=== PATIENT | male | born 1960 | race Caucasian/White ===

== ENCOUNTER 2023-12-19 16:53 | Emergency (ER) | payer OTHER, SELFPAY ==
[2023-12-19 17:34] VITALS: BP 127/73; PULSE 66; RESP 18; TEMP 36.6; O2SAT 99
[2023-12-19 19:05] VITALS: BP 122/75; PULSE 63; RESP 19; O2SAT 96
[2023-12-19 20:56] VITALS: BP 147/76; PULSE 65; RESP 16; O2SAT 100
--- NOTE | 2023-12-19 21:01 | USR_ITS ---
PROCEDURE INFORMATION: Exam: US Duplex Right Lower Extremity Veins, Limited Exam date and time: 12/19/2023 9:55 PM Age: 63 years old Clinical indication: Pain; Leg, lower; Right; Prior surgery; Surgery date: 6+ months; Surgery type: Knee replacement x1 year ago; Additional info: Rle pain and swelling TECHNIQUE: Imaging protocol: Real-time duplex ultrasound of the right extremity with 2-D marina scale, color Doppler flow and spectral waveform analysis including responses to compression and other maneuvers (when performed) with image documentation. Limited exam was focused on the right lower extremity veins. COMPARISON: No relevant prior studies available. FINDINGS: Right deep veins: Unremarkable. The common femoral, femoral, proximal profunda femoral and popliteal veins are patent without thrombus. Normal Doppler waveforms. Normal compressibility and/or augmentation response. Superficial veins: Greater saphenous vein at the saphenofemoral junction is patent without thrombus. Soft tissues: Mercedes's cyst in the right popliteal fossa measuring 1.2 x 2.8 x 4.8 cm. US/[place] [id number] IMPRESSION: No evidence of deep vein thrombosis. Right Mercedes cyst
--- NOTE | 2023-12-19 21:06 | W.ED.EXTPRO ---
HPI - Extremity Problem General: Chief complaint: Extremity Injury, Lower Stated complaint: rt leg swollen Time Seen by Provider: 12/19/23 20:42 History of Present Illness: 63-year-old male patient with a history of bilateral knee arthroplasty, not recently. He presents with a right lower extremity pain, and swelling. Pain seems to be from the back of the knee, down to the foot. He is not in pain currently. Symptoms have been present for 2 days Related Data Home Medications Medication Instructions Recorded Confirmed multivitamin 1 tab PO DAILY 08/09/19 08/09/19 cetirizine 10 mg tablet (Zyrtec) 10 - 20 mg PO DAILY 08/05/22 fluticasone propionate 50 1 spray intranasal DAILY 08/05/22 mcg/actuation nasal spray,suspension (Flonase Allergy Relief) Previous Rx's Medication Instructions Recorded lisinopril 40 mg tablet 40 mg PO DAILY #90 tabs 08/06/21 chlorthalidone 25 mg tablet 25 mg PO DAILY #90 tabs 08/21/22 methylprednisolone 4 mg tablets in See Rx Instructions PO .COMPLEX 12/19/23 a dose pack (Medrol (Van)) #21 ea Allergies Allergy/AdvReac Type Severity Reaction Status Date / Time No Known Allergies Allergy Verified 08/06/23 14:23 [facility] ED PFSH: Medical History Osteoarthritis HTN (hypertension) Sleep apnea Family History Other Atrial fibrillation Cancer Social History Smoking and tobacco/nicotine status: never used tobacco/nicotine Alcohol intake: never Substance/Drug Use: never Physical Exam Const: COMMON NORMALS: no acute distress GENERAL APPEARANCE: cooperative; not ill appearing and not frail appearing HENMT: COMMON NORMALS: normocephalic, atraumatic and Normal external nose present HEAD & SCALP: normocephalic and atraumatic FACE & SINUS: normal facial exam and face symmetric NOSE: Normal external nose present Eye: COMMON NORMALS: Equal, round and reactive pupils present and EOMs intact bilaterally PUPIL: Yes Equal, round and reactive pupils present Neck/C-Spine: GENERAL: Yes trachea midline Chest: CHEST: Yes Symmetrical chest wall rise Resp: COMMON NORMALS: normal respiratory effort, No retractions, No use of accessory muscles and clear to auscultation bilaterally AUSCULTATION: clear to auscultation bilaterally Cardio: COMMON NORMALS: regular rate and regular rhythm RATE: regular rate RHYTHM: regular rhythm GI: COMMON NORMALS: Normal to inspection, nondistended, normoactive bowel sounds present Extremity: NARRATIVE EXTREMITY EXAM: Right lower extremity noticeably bigger than the left lower extremity. There is minimal tenderness to the calf. Minimal pain on hamstring and calf stretch. No deformity. Minimal knee joint effusion. The knee is not tender itself. Sensation is intact distally. Pulses intact. Lower extremities warm to the touch. Neuro: TEJAL COMA SCALE: document GCS findings Tejal coma scale eye opening: Spontaneous [place] coma scale verbal response: Orientated Tejal coma scale motor response: Obey commands Tejal coma scale total score: 15 SENSORY EXAM: Yes extremities (intact) Psych: COMMON NORMALS: speech normal SPEECH: Yes normal speech Skin: COMMON NORMALS: no rashes or lesions noted GENERAL SKIN EXAM: no rashes or lesions noted Course Vital Signs: Vital signs: Vital Signs Temperature 97.8 F 12/19/23 17:34 Pulse Rate 69 12/19/23 22:48 Respiratory Rate 16 12/19/23 22:48 Blood Pressure 157/82 12/19/23 22:48 Pulse Oximetry 100 12/19/23 22:48 Oxygen Delivery Me thod Room Air 12/19/23 20:56 MDM - Extremity (Nontraumatic) Medical Decision Making Ultrasound is negative for DVT but is positive for popliteal cyst, likely inhibiting venous return. Treatment options were reviewed with the patient. He will go home on a tapering dose of steroid, elevation, and compression stockings. To return for worsening symptoms despite treatment. Lab Data Radiology Impressions Venous Duplex 12/19/23 21:01 IMPRESSION: No evidence of deep vein thrombosis. Right Mercedes cyst Laboratory Results Urine Color Yellow (Yellow) 12/19/23 21:06 Urine Appearance Clear (CLEAR) 12/19/23 21:06 Urine pH 7.5 (5-7) 12/19/23 21: Ur Specific [place] 1.025 (1.005-1.030) 12/19/23 21:06 Urine Protein Negative (Negative) 12/19/23 21: Urine Glucose (UA) Negative (Normal) 12/19/23 21:06 Urine Ketones 1+ (Negative) H 12/19/23 21:06 Urine Blood Negative (Negative) 12/19/23 21:06 Urine Nitrate Negative (Negative) 12/19/23 21:06 Urine Bilirubin Negative (Negative) 12/19/23 21:06 Urine Urobilinogen 1.0 mg/dL (Negative) 12/19/23 21:06 Ur Leukocyte Esterase Negative (Negative) 12/19/23 21:06 Urine RBC 0-2 /hpf (0-2) 12/19/23 21:06 Urine WBC 0-5 /hpf (0-5) 12/19/23 21:06 Ur Squamous Epith Cells 0-5 /hpf (0-5) 12/19/23 21:06 Amorphous Sediment Not Reportable 12/19/23 21:06 Urine Bacteria None seen /hpf (NONE) 12/19/23 21:06 Hyaline Casts 0.81 /lpf 12/19/23 21:06 All radiology interpretation(s) finalized by discharge Discharge Plan Discharge Patient Disposition: Home Clinical Impression: Mercedes's cyst of knee Qualifiers: Laterality: right Qualified Code(s): M71.21 - Synovial cyst of popliteal space [Mercedes], right knee Condition: Stable Prescriptions: New methylprednisolone [Medrol (Van)] 4 mg tablets,dose pack See Rx Instructions .ROUTE .COMPLEX Qty: 21 0RF Rx Instructions: orally per package directions No Action multivitamin Tablet 1 tab PO DAILY cetirizine [Zyrtec] 10 mg tablet 10 - 20 mg PO DAILY lisinopril 40 mg tablet 40 mg PO DAILY Qty: 90 3RF fluticasone propionate [Flonase Allergy Relief] 50 mcg/actuation spray,suspension 1 spray intranasal DAILY Rx Instructions: administer into each nostril chlorthalidone 25 mg tablet 25 mg PO DAILY Qty: 90 3RF Discharge Orders: Discharge ED (Routine); Ordered 12/19/23 Ordered By: Abhay Medina Referrals: Vu Ventura MD [Primary Care Provider] - 4-7 days Discharge Diet: Advance as tolerated Patient Instructions: Mercedes Cyst (ED), Opioid Safety, Pain Management Activity Restrictions/Additional Instructions: Ice elevate and wear compression stockings to improve swelling. Medication as directed. Return for fever, worsening swelling despite treatment, redness, increasing warmth, other concerning symptoms. Coding Level of Care Code ED Contract Mail Carrier for Ginna Rodríguez
[2023-12-19 21:12] LABS: Bilirubin Urine Negative (Negative); Blood Urine Negative (Negative); Glucose Urine UA Negative (Normal); Ketones Urine 1+ (Negative); Leukocyte Esterase Urine Negative (Negative); Nitrate Urine Negative (Negative); Protein Urine Negative (Negative); Specific Gravity, Urine 1.025 (1.005-1.030); Urine Appearance Clear (CLEAR); Urine Color Yellow (Yellow); pH Urine 7.5 (5-7)
[2023-12-19 21:17] LABS: Add Urine Microscopic? YES; Bacteria Urine None Seen /hpf; Hyaline Casts Urine 0.81 /lpf; RBC Urine 0-2 /hpf (0-2); Squamous Epithelial Cell Urine 0-5 /hpf (0-5); WBC Urine 0-5 /hpf (0-5)
[2023-12-19] MEDS: dexamethasone 4 mg Tablet 10 MG PO (22:42)
[2023-12-19 22:48] VITALS: BP 157/82; PULSE 69; RESP 16; O2SAT 100
== END 2023-12-19 22:50 | disposition home or self-care (01) ==
PROVIDERS: Emergency Provider Emergency Medicine; PCP Family Medicine
DX: M71.21 Synovial cyst of popliteal space [Baker], right knee (principal); I10 Essential (primary) hypertension
CPT/HCPCS: 81001; 93971; 99284; J8540